=== PATIENT | female | born 1990 | race Caucasian/White ===

== ENCOUNTER 2018-03-06 07:57 | Day surgery (SDC) | payer OTHER ==
[~2018-03-06] VITALS: Ht 167.6 cm; Wt 93.0 kg
[2018-03-06 08:18] VITALS: BP 111/55
[2018-03-06 14:45] VITALS: BP 130/85
== END 2018-03-06 14:30 | disposition home or self-care (01) ==
LOC: DS 07:57 → OR 11:00 → DS 14:30
PROVIDERS: Obstetrics & Gynecology
PROC: 0UB70ZZ Excision of Bilateral Fallopian Tubes, Open Approach (ICD-10-PCS; principal; 2018-03-06 11:00)
DX: Z30.2 Encounter for sterilization (principal)
CPT/HCPCS: J0690; J1170; J2270; J2405; J2704; J3010; J3490; J7120